=== PATIENT | male | born 1950 | race Caucasian/White ===

== ENCOUNTER 2018-01-04 07:05 | Day surgery (SDC) | payer OTHER ==
[~2018-01-04] VITALS: Ht 190.5 cm; Wt 102.0 kg
[~2018-01-04 07:05] MED LIST: ASPI81CH PO; ATOR10 PO; CLOP75 PO; DUTA.5 PO; FINA5 PO; TAMS.4ER PO
== END 2018-01-04 13:45 | disposition home or self-care (01) ==
LOC: MHTC 07:05
PROC: 4A033BC Measurement of Arterial Pressure, Coronary, Percutaneous Approach (ICD-10-PCS; principal; 2018-01-04)
PROC: B211YZZ Fluoroscopy of Multiple Coronary Arteries using Other Contrast (ICD-10-PCS; principal; 2018-01-04)
PROC: 4A023N7 Measurement of Cardiac Sampling and Pressure, Left Heart, Percutaneous Approach (ICD-10-PCS; principal; 2018-01-04)
DX: I25.10 Atherosclerotic heart disease of native coronary artery without angina pectoris (principal); Z95.9 Presence of cardiac and vascular implant and graft, unspecified; I10 Essential (primary) hypertension; Z87.891 Personal history of nicotine dependence; E78.5 Hyperlipidemia, unspecified; R00.1 Bradycardia, unspecified
CPT/HCPCS: 85347; 93458; 93571; 99152; C1769; C1894; J1644; J2250; J3010; J7030; Q9967

== ENCOUNTER 2018-02-09 18:22 | Emergency (ER) | payer OTHER ==
[~2018-02-09] VITALS: Ht 188 cm; Wt 102.1 kg
[2018-02-09] MEDS ORDERED: LOSA25 PO (18:44)
[2018-02-09] MEDS ORDERED: Hydrocodone-Ap1 EA23 PO (18:44)
[2018-02-09] MEDS ORDERED: Pyridium200 MG PO (18:44)
== END 2018-02-09 20:37 | disposition home or self-care (01) ==
LOC: ER 18:22
DX: R33.9 Retention of urine, unspecified (principal); I25.10 Atherosclerotic heart disease of native coronary artery without angina pectoris; Z88.2 Allergy status to sulfonamides; Z79.899 Other long term (current) drug therapy; Z79.82 Long term (current) use of aspirin
CPT/HCPCS: 51702; 51798; 76770; 99283-25

== ENCOUNTER 2020-12-15 08:10 | Day surgery (SDC) | payer OTHER ==
[~2020-12-15] VITALS: Ht 188 cm; Wt 102.7 kg
[~2020-12-15 08:10] MED LIST changes: +Hydrocodone-Ap1 EA23 PO; +LOSA25 PO; +Pyridium200 MG PO; +ROSU10TA PO
--- NOTE | 2020-12-15 08:55 | NUR ---
Ambulatory in Day Surgery History, Chart, Medications and Allergies reviewed before start of procedure. Patient confirms NPO status and agrees with scheduled surgery. Pre-Op teaching done. Pt verbalizes understanding. Patient States Post-Procedure ride home has been arranged.
--- NOTE | 2020-12-15 09:20 | NUR ---
TOLERATING PO FLUIDS. NO C/O. ALERT, BREATHING RA.
--- NOTE | 2020-12-15 09:25 | NUR ---
VSS. PATIENT STATES HIS BLOOD PRESSURE DOES SOMETIMES RUN HIGH AND WILL MONITOR AT HOME AND REPORT TO HIS PCP. Discharge instructions reviewed with patient. Patient verbalizes understanding. Copy given to patient to take home. Patient States Post-Procedure ride home has been arranged with his friend, Darya.
--- NOTE | 2020-12-15 09:27 | NUR ---
12/15/20 0927 OLY PYLE History, Chart, Medications and Allergies reviewed before start of procedure. 3-LEAD EKG REVIEWED WITH PHYSICIAN PRIOR TO START OF PROCEDURE. O2 VIA N/C INTACT THROUGHOUT SEDATION/PROCEDURE. MONITOR INTACT WITH CONTINUOUS PULSE OXIMETRY AND INTERMITTENT BP. PATIENT DETERMINED TO BE ASA APPROPRIATE FOR PROPOFOL SEDATION PRIOR TO START OF PROCEDURE BY .
--- NOTE | 2020-12-15 10:17 | NUR ---
Discharge instructions reviewed with patient. Patient verbalizes understanding. Copy given to patient to take home. Patient States Post-Procedure ride home has been arranged.
== END 2020-12-15 10:18 | disposition home or self-care (01) ==
LOC: ORSCMMR 08:10 → ORD 09:00 → ORSCMMR 10:18
PROVIDERS: Internal Medicine Gastroenterology
PROC: 0DBK8ZX Excision of Ascending Colon, Via Natural or Artificial Opening Endoscopic, Diagnostic (ICD-10-PCS; principal; 2020-12-15 09:00)
PROC: 0DBH8ZX Excision of Cecum, Via Natural or Artificial Opening Endoscopic, Diagnostic (ICD-10-PCS; principal; 2020-12-15 09:00)
DX: Z12.11 Encounter for screening for malignant neoplasm of colon (principal); Z86.010 Personal history of colon polyps; D12.0 Benign neoplasm of cecum; D12.2 Benign neoplasm of ascending colon; K57.30 Diverticulosis of large intestine without perforation or abscess without bleeding; K64.8 Other hemorrhoids; Z79.899 Other long term (current) drug therapy; Z79.82 Long term (current) use of aspirin
CPT/HCPCS: 88305; J2704; J7120

== ENCOUNTER 2022-09-13 06:52 | Day surgery (SDC) | payer OTHER ==
[2022-09-13] VITALS (7 sets, daily range): BP systolic 117–151; BP diastolic 73–100
[~2022-09-13] VITALS: Ht 188 cm; Wt 103.9 kg
[~2022-09-13 06:52] MED LIST changes: +ASCO500
--- NOTE | 2022-09-13 09:28 | NUR ---
0900 PATIENT RETURNED FROM THE [facility] VIA RECLINER , PATIENT PLACED ON THE MONITOR AND CALL LIGHT IN REACH, FAMILY BROUGHT TO THE BEDSIDE. TR BAND TO THE RIGHT RADIAL WITH 12 ML OF AIR IN THE BAND PLETH WAVEFORM GOOD. PATIENT DENIES NUMBNESS AND TINGLING TO FINGERS. PATIENT SERVED COFFEE.
--- NOTE | 2022-09-13 10:39 | NUR ---
1020 BEGAN TAKING AIR FROM THE TR BAND. NO HEMATOMA, NO BLEEDING NOTED. VVS.
--- NOTE | 2022-09-13 10:40 | NUR ---
TR BAND FLAT. NO BLEEDING, NO HEMATOMA. PATIENT TOLERATED WELL. PATIENT IS REVIEWING DISCHARGE INSTRUCTIONS AND NO FURTHER QUESTIONS NOTED.
== END 2022-09-13 11:00 | disposition home or self-care (01) ==
LOC: MHTC 06:52
DX: I25.118 Atherosclerotic heart disease of native coronary artery with other forms of angina pectoris (principal); R94.39 Abnormal result of other cardiovascular function study; R55 Syncope and collapse; I10 Essential (primary) hypertension; Z79.82 Long term (current) use of aspirin; Z88.2 Allergy status to sulfonamides
CPT/HCPCS: 76937; 93458; 99152; 99153; C1769; C1887; C1894; J1644; J2250; J3010; J7030; J7050; Q9967

== ENCOUNTER 2024-06-14 12:53 | Emergency (ER) | payer OTHER ==
[~2024-06-14] VITALS: Ht 188 cm; Wt 103.0 kg
[~2024-06-14 12:53] MED LIST changes: +LEVO750 PO; +Pyridium100 MG PO
[2024-06-14 13:01] VITALS: BP 185/110
[2024-06-14] MEDS ORDERED: AMOX500 PO (13:33)
== END 2024-06-14 13:34 | disposition home or self-care (01) ==
LOC: ER 12:53
DX: N41.0 Acute prostatitis (principal); Z88.2 Allergy status to sulfonamides; Z88.8 Allergy status to other drugs, medicaments and biological substances
CPT/HCPCS: 99282

== ENCOUNTER 2025-01-18 14:46 | Emergency (ER) | payer MEDICARE, OTHER ==
[~2025-01-18] VITALS: Ht 188 cm; Wt 102.1 kg
[~2025-01-18 14:46] MED LIST changes: +AMOX500 PO
[2025-01-18 15:26] LABS: BASOPHILS ABSOLUTE AUTO 0.07 K/mm3 (0.00-0.23); BASOPHILS PERCENT AUTO 0 % (0-2); EOSINOPHILS ABSOLUTE AUTO 0.04 K/mm3 (0.00-0.68); EOSINOPHILS PERCENT AUTO 0 % (0-6); Hematocrit 43.0 % (37.0-53.0); Hemoglobin 14.2 g/dL (13.5-17.5); IMMATURE GRAN ABSOLUTE AUTO 0.10 K/mm3 (0.00-0.10); IMMATURE GRAN PERCENT AUTO 1 % (0-1); LYMPHOCYTES ABSOLUTE AUTO 1.37 K/mm3 (0.84-5.20); LYMPHOCYTES PERCENT AUTO 9 % (21-46); MONOCYTES ABSOLUTE AUTO 1.21 K/mm3 (0.16-1.47); MONOCYTES PERCENT AUTO 8 % (4-13); Mean Corpuscular HGB Conc 33.0 g/dL (31.5-36.5); Mean Corpuscular Volume 89 fL (80-100); NEUTROPHILS ABSOLUTE AUTO 13.18 K/mm3 (1.96-9.15); NEUTROPHILS PERCENT AUTO 83 % (41-73); NRBC ABSOLUTE 0.00 K/mm3 (0.00-0.02); NRBC Auto 0.0 /100 WBC (0.0-0.2); Platelet Count 221 K/mm3 (150-400); RDW Coefficient Variation 14.0 % (11.7-14.2); RDW Standard Deviation 45.1 fL (35.1-46.3)
[2025-01-18 15:55] LABS: Alanine Aminotransfer (ALT/SGP 35.0 U/L (12-78); Albumin, Blood 3.8 g/dL (3.4-5.0); Albumin/Globulin Ratio 1.1 (0.8-1.8); Anion Gap 9.0 mmol/L (3-11); Aspartate Aminotrans (AST/SGOT 37.0 U/L (12-37); Bilirubin, Total 0.6 mg/dL (0.1-1.0); Blood Urea Nitrogen 21.0 mg/dL (8-24); CO2, Blood 23.0 mmol/L (21-32); Calcium, Blood 9.1 mg/dL (8.5-10.1); Chloride, Blood 111.0 mmol/L (98-108); Creatinine, Blood 1.08 mg/dL (0.60-1.20); Globulin, Blood 3.6 g/dL (2.2-4.0); Glucose, Blood 109.0 mg/dL (70-99); Potassium, Blood 4.3 mmol/L (3.5-5.5); Sodium, Blood 139.0 mmol/L (136-145); Total Protein, Blood 7.4 g/dL (6.4-8.2)
[2025-01-18] MEDS ORDERED: Ketorolac Tromethamine 30mg Vial IV ONE (15:55)
[2025-01-18] MEDS ORDERED: Lidocaine 4% 1 Patch TOP ONE (15:55)
[2025-01-18 16:08] VITALS: BP 175/90
[2025-01-18] MEDS ORDERED: LIDO700A20 TOP (17:58)
[2025-01-18] MEDS ORDERED: IBUP800 PO (17:58)
== END 2025-01-18 18:15 | disposition home or self-care (01) ==
LOC: ER 14:46
PROVIDERS: Physician Assistant
DX: J93.9 Pneumothorax, unspecified (principal); S22.41XA Multiple fractures of ribs, right side, initial encounter for closed fracture; E78.5 Hyperlipidemia, unspecified; K21.9 Gastro-esophageal reflux disease without esophagitis; W22.8XXA Striking against or struck by other objects, initial encounter; Z79.82 Long term (current) use of aspirin; Z79.899 Other long term (current) drug therapy; Z88.2 Allergy status to sulfonamides; Z88.1 Allergy status to other antibiotic agents
CPT/HCPCS: 71045; 71046; 80053; 84484; 85025; 93005; 93010; 96374; 99284-25; A9270; J1885

== ENCOUNTER 2025-01-20 10:48 | Emergency (ER) | payer MEDICARE, OTHER ==
[~2025-01-20] VITALS: Ht 188 cm; Wt 102.1 kg
[~2025-01-20 10:48] MED LIST changes: +IBUP800 PO; +LIDO700A20 TOP
[2025-01-20 11:26] VITALS: BP 102/53
== END 2025-01-20 13:01 | disposition home or self-care (01) ==
LOC: ER 10:48
DX: S27.0XXD Traumatic pneumothorax, subsequent encounter (principal); S22.41XD Multiple fractures of ribs, right side, subsequent encounter for fracture with routine healing; W19.XXXD Unspecified fall, subsequent encounter; E78.5 Hyperlipidemia, unspecified; K21.9 Gastro-esophageal reflux disease without esophagitis; Z88.2 Allergy status to sulfonamides; Z88.8 Allergy status to other drugs, medicaments and biological substances; Z79.899 Other long term (current) drug therapy; Z79.82 Long term (current) use of aspirin
CPT/HCPCS: 71046; 99283-25